=== PATIENT | female | born 1950 | race American Indian/Alaskan Native ===

== ENCOUNTER 2019-05-26 10:51 | Outpatient (CLI) | payer MEDICARE, OTHER ==
--- NOTE | 2019-05-29 11:31 | Mammography Report ---
BILATERAL DIGITAL SCREENING MAMMOGRAM WITH CAD INDICATION: Routine screening mammography. TECHNIQUE: Digital bilateral 2D mammography was obtained in the craniocaudal and mediolateral obliq ue projections. This examination was interpreted with the benefit of Computer-Aided Detection analysi s. COMPARISON: 08/23/2015 FINDINGS: Breast Density: The breasts are almost entirely fatty. No mass, architectural distortion or suspicious calcifications. IMPRESSION:No mammographic evidence of malignancy. BI-RADS Category 1: Negative. No mammographic evidence of malignancy. Recommend routine screening m ammography in one year. A "normal" or negative report should not discourage follow up or biopsy of a clinically significant f inding. A written summary of these findings will be mailed to the patient. The patient will be entered into a mammography reporting system which will generate a reminder letter for the patient's next appointmen t at the appropriate interval. The [employer] recommends yearly mammograms starting at age 40 and continuing as l jatin as a woman is in good health. Breast MRI is recommended for women with an approximate 20-25% or greater lifetime risk of breast cancer, including women with a strong family history of breast or ova jaxon cancer or who have been treated for Hodgkin's disease. Signer Name: Raoul Mccall MD Signed: 05/29/2019 11:27 AM Workstation Name: [id number]
== END 2019-05-26 10:52 | disposition home or self-care (01) ==
LOC: SPVWC 10:51
PROVIDERS: ATTEND Obstetrics & Gynecology
DX: Z12.31 Encounter for screening mammogram for malignant neoplasm of breast (principal)
CPT/HCPCS: 77067

== ENCOUNTER 2021-05-27 12:30 | Outpatient (CLI) | payer MEDICARE, OTHER ==
--- NOTE | 2021-05-27 14:33 | Mammography Report ---
RIGHT DIAGNOSTIC MAMMOGRAM INDICATION: Status post ultrasound-guided right breast biopsy x2. COMPARISON: Outside imaging performed 04/28/2021, 04/09/2021. FINDINGS: Right breast CC, XCCL and LM projection mammograms were obtained. These document two biopsy markers in the right breast at the 11:00 posterior position and right axillary position. IMPRESSION: Right breast mammographic images documenting accurate location of biopsy markers within masses in the right breast at the 11:00 posterior position and right axillary position. BI-RADS Category 4: Suspicious for Malignancy. Signer Name: Georgi Alcaraz MD Signed: 05/27/2021 2:29 PM Workstation Name: [id number]
--- NOTE | 2021-05-27 15:01 | Ultrasound Report ---
ULTRASOUND-GUIDED CORE NEEDLE BIOPSY Right BREAST x2 WITH CLIP PLACEMENT INDICATION: Right breast mass at the 11:00 position and enlarged right axillary lymph node. FINDINGS: Informed consent was obtained. The mass within the right breast at the 11:00 position, 10 cm from the nipple, was identified with ultrasound. The overlying skin was cleansed with chloro prep and local a nesthesia was obtained with a 1% lidocaine solution. Under ultrasound guidance a 14-gauge spring load ed core biopsy needle was advanced to the lesion. A total of 4 core samples were obtained. A U-shaped biopsy marker was placed to daniel the site of the biopsy. Specimen samples were placed in formalin an d sent to pathology for analysis. The enlarged lymph node in the right axilla was identified with ultrasound. The overlying skin was cl eansed with chloro prep and local anesthesia was obtained with a 1% lidocaine solution. Under ultraso und guidance a 14-gauge spring loaded core biopsy needle was advanced to the lesion. A total of 4 cor e samples were obtained. A coil shaped biopsy marker was placed to daniel the site of the biopsy. Speci men samples were placed in formalin and sent to pathology for analysis. Portions of this biopsy were placed in RPMI solution. Patient tolerated the procedure well and no immediate complications were identified. A post procedure mammogram demonstrates accurate placement of the biopsy marker. IMPRESSION: Technically successful ultrasound-guided core biopsy of right breast mass at the 11:00 position with patient of a U-shaped biopsy marker. Technically successful ultrasound guided core biopsy of right axillary lymph node with placement of a coil shaped biopsy marker. Note: Portions of the biopsy sample were placed in RPMI solution. An addendum will be added to this report once pathology results are available. Signer Name: Georgi Alcaraz MD Signed: 05/27/2021 2:57 PM Workstation Name: [id number]
== END 2021-05-27 12:31 | disposition home or self-care (01) ==
LOC: SPVWC 12:30
PROVIDERS: ATTEND Surgery
DX: R92.8 Other abnormal and inconclusive findings on diagnostic imaging of breast (principal); N63.11 Unspecified lump in the right breast, upper outer quadrant; R92.2 Inconclusive mammogram
CPT/HCPCS: 38505; 76942; 88184; 88185; 88305